=== PATIENT | female | born 1980 | race Two or more races ===

== ENCOUNTER 2016-11-28 02:19 | Emergency (ER) | payer OTHER ==
[~2016-11-28] VITALS: Ht 170.2 cm; Wt 133.1 kg
[~2016-11-28 02:19] MED LIST: ACID CONTROL150 MG PO; AMOXICILLIN500 MG PO; AMOXICILLIN875 MG PO; ATENOLOL25 MG; BENTYL10 MG PO; BENTYL20 MG PO; CALAN SR,COVER120 MG PO; CARAFATE1 GM PO; CIPRO500 MG PO; CLARITIN10 M3 PO; Chronulac,Cephulac,Enulose 20 gm/30 ml PO; DESYREL 150 MG150 MG PO; FLEXERIL10 MG PO; FLOVENT 11120 INHALA; FLOVENT 11120 INHALA IH; GABAPENTIN300 MG PO; GABAPENTIN800 MG PO; IBUPROFEN800 MG PO; KEFLEX500 MG PO; KENALOG,ARISTOC80 G1 TP; LEVAQUIN750 MG PO; LEVOTHROID100 MCG; LEVOTHYROXINE100 MCG PO; LISINOPRIL20 MG PO; LORCET 5-325 M1 EACH PO; LORTAB 10-3251 EACH PO; METFORMIN HCL500 MG PO; MOBIC15 MG PO; MOTRIN800 MG PO; Medrol PO; NAPROSYN500 MG PO; NEURONTIN300 MG PO; NEXIUM20 MG PO; NORCO 5/3251 TABLET PO; NYQUIL D COLD295 ML PO; OMEPRAZOLE20 MG PO; OXYCODONE HCL5 MG PO; PANTOPRAZOLE SO40 MG PO; PEN-VEE K,VEET500 MG PO; PEPCID20 MG PO; PERCOCET 5/31 TABLET PO; PHENERGAN-CODE120 ML PO; PHENERGAN12.5 M1 PO; PREDNISONE20 MG PO; PRILOSEC20 MG; PRILOSEC20 MG PO; PROAIR HFA8.5 GM; PROMETHAZINE HC25 M1 PO; PROTONIX40 MG PO; PROVENTIL HFA6.7 GM IH; ROXICODONE5 MG PO; SEROQUEL100 MG; SEROQUEL100 MG PO; SUCRALFATE1 GM PO; SYNTHROID100 MCG PO; TRAMADOL HCL50 MG; TRAZODONE HCL50 MG PO; ULTRAM50 MG PO; VENTOLIN HFA18 GM IH; VERAPAMIL HCL120 M1 PO; XIFAXAN550 MG PO; ZANTAC150 MG PO; ZESTRIL,PRINIVI20 MG; ZESTRIL20 MG PO; ZOFRAN ODT4 MG PO; ZOFRAN ODT8 MG PO; ZOFRAN4 MG PO; Zithromax PO; [UNRECOGNIZED DRUG - REMARK]
[2016-11-28] MEDS ORDERED: BACTRIM,SEPT1 TABLET PO (02:38)
[2016-11-28] MEDS ORDERED: ULTRAM50 MG PO (02:38)
[2016-11-28] MEDS ORDERED: KEFLEX500 MG PO (02:38)
[2016-11-28 02:46] VITALS: BP 114/70
== END 2016-11-28 02:50 | disposition home or self-care (01) ==
LOC: EME 02:19
DX: L03.112 Cellulitis of left axilla (principal); I10 Essential (primary) hypertension; J45.909 Unspecified asthma, uncomplicated; E03.9 Hypothyroidism, unspecified
CPT/HCPCS: 99281; 99284

== ENCOUNTER 2016-12-16 20:00 | Emergency (ER) | payer OTHER ==
[~2016-12-16] VITALS: Ht 170.2 cm; Wt 134.5 kg
[~2016-12-16 20:00] MED LIST changes: +BACTRIM,SEPT1 TABLET PO
[2016-12-16] MEDS ORDERED: NAPROXEN500 MG PO (22:27)
[2016-12-16 22:36] VITALS: BP 127/83
== END 2016-12-16 22:37 | disposition home or self-care (01) ==
LOC: EME 20:00
DX: M25.561 Pain in right knee (principal); M25.562 Pain in left knee; I10 Essential (primary) hypertension; J45.909 Unspecified asthma, uncomplicated
CPT/HCPCS: 99281; 99284

== ENCOUNTER 2017-04-23 10:08 | Emergency (ER) | payer OTHER ==
[~2017-04-23] VITALS: Ht 170.2 cm; Wt 135.0 kg
[~2017-04-23 10:08] MED LIST changes: +NAPROXEN500 MG PO
[2017-04-23 11:39] LABS: HEMATOCRIT 31.1 % (36.0-46.0); MCH 24.1 PG (29.0-34.0); MCHC 30.9 G/DL (30.0-36.0); MCV 78.1 FL (83-99); PLATELET COUNT 66 K/uL (156-360); RBC DIS.WIDTH-CV 18.8 % (11.8-14.6); RBC DIS.WIDTH-SD 53.9 % (39-53); RED BLOOD COUNT 3.98 M/uL (3.80-5.20); WHITE BLOOD COUNT 3.3 K/uL (4.1-10.2)
[2017-04-23 11:46] LABS: CHLORIDE 106 mEq/L (99-109); POTASSIUM 3.6 mEq/L (3.7-5.4); SODIUM 143 mEq/L (136-147)
[2017-04-23 11:48] LABS: GLUCOSE 119 mg/dL (70-99)
[2017-04-23 11:50] LABS: ANION GAP 10 MEQ/L (2-14); TOTAL BILIRUBIN 0.8 mg/dL (0.0-1.0)
[2017-04-23 11:52] LABS: ALKALINE PHOSPHATASE 278 IU/L (3-129); GFR ESTIMATE (CALCULATED) > 59 mL/min/
[2017-04-23 11:53] LABS: UREA NITROGEN (BUN) 5 mg/dL (9-23)
[2017-04-23 11:55] LABS: LIPASE 27 U/L (1.0-51.0)
[2017-04-23 14:24] VITALS: BP 140/93
== END 2017-04-23 14:27 | disposition home or self-care (01) ==
LOC: EME 10:08
PROVIDERS: Emergency Medicine
DX: D61.818 Other pancytopenia (principal); K06.8 Other specified disorders of gingiva and edentulous alveolar ridge; K74.69 Other cirrhosis of liver; E11.9 Type 2 diabetes mellitus without complications; E05.90 Thyrotoxicosis, unspecified without thyrotoxic crisis or storm; E66.9 Obesity, unspecified; Z68.42 Body mass index [BMI] 45.0-49.9, adult
CPT/HCPCS: 80053; 83605; 83690; 85027; 86850; 86900; 86901; 99281; 99283

== ENCOUNTER 2017-09-26 17:12 | Inpatient (IN) | payer OTHER ==
[2017-09-26] VITALS (7 sets, daily range): BP systolic 99–114; BP diastolic 54–79
[~2017-09-26] VITALS: Ht 170.2 cm; Wt 137.4 kg
[~2017-09-26 17:12] MED LIST changes: +GLUCOPHAGE500 MG PO; +SUCRALFATE1 GM/10 ML PO
[2017-09-26 18:19] LABS: CHLORIDE 106 mEq/L (99-109); HEMATOCRIT 21.5 % (36.0-46.0); MCH 23.4 PG (29.0-34.0); MCHC 30.2 G/DL (30.0-36.0); MCV 77.3 FL (83-99); PLATELET COUNT 84 K/uL (156-360); POTASSIUM 3.4 mEq/L (3.7-5.4); RBC DIS.WIDTH-CV 20.3 % (11.8-14.6); RBC DIS.WIDTH-SD 56.5 % (39-53); SODIUM 143 mEq/L (136-147)
[2017-09-26 18:20] LABS: HEMOGLOBIN 6.5 G/DL (11.9-15.5); RED BLOOD COUNT 2.78 M/uL (3.80-5.20)
[2017-09-26 18:21] LABS: GLUCOSE 87 mg/dL (70-99)
[2017-09-26 18:25] LABS: CREATININE 0.8 mg/dL (0.6-1.3); GFR ESTIMATE (CALCULATED) > 59 mL/min/
[2017-09-26 18:26] LABS: UREA NITROGEN (BUN) 19 mg/dL (9-23)
[2017-09-26 18:36] LABS: ALBUMIN 4.1 g/dL (3.2-4.8)
[2017-09-26 18:39] LABS: TOTAL PROTEIN 7.1 g/dL (6.4-8.3)
[2017-09-26 18:40] LABS: TOTAL BILIRUBIN 0.8 mg/dL (0.0-1.0)
[2017-09-26 18:41] LABS: ALKALINE PHOSPHATASE 231 IU/L (3-129)
[2017-09-26 18:44] LABS: AST (GOT) 40 IU/L (2-34); DIRECT BILIRUBIN 0.3 mg/dL (0.0-0.3)
[2017-09-26 18:45] LABS: ALT (GPT) 18 IU/L (3-49)
[2017-09-26 20:56] LABS: INTER. NORMALIZED RATIO 1.3
[2017-09-26 20:59] LABS: PTT 32.5 SEC (25-37)
[2017-09-26] MEDS ORDERED: QUETIAPINE FUM100 MG PO (22:10)
[2017-09-26] MEDS ORDERED: LEVOTHYROXINE25 MCG PO (22:11)
[2017-09-26] MEDS ORDERED: LEVOTHYROXINE50 MCG PO (22:14)
[2017-09-27] VITALS (31 sets, daily range): BP systolic 0–153; BP diastolic 0–97
[2017-09-27 01:20] LABS: HEMATOCRIT 24.4 % (36.0-46.0); HEMOGLOBIN 7.7 G/DL (11.9-15.5); MCV 80.8 FL (83-99)
[2017-09-27 08:28] LABS: HEMATOCRIT 29.7 % (36.0-46.0); HEMOGLOBIN 9.2 G/DL (11.9-15.5); MCV 80.9 FL (83-99)
[2017-09-27 13:07] LABS: HEMATOCRIT 30.4 % (36.0-46.0); HEMOGLOBIN 9.6 G/DL (11.9-15.5); MCV 81.5 FL (83-99)
[2017-09-27 18:37] LABS: HEMATOCRIT 33.2 % (36.0-46.0); HEMOGLOBIN 10.4 G/DL (11.9-15.5); MCV 83.2 FL (83-99)
[2017-09-28 00:06] VITALS: BP 127/82
[2017-09-28 00:40] LABS: HEMOGLOBIN 9.7 G/DL (11.9-15.5); MCV 84.2 FL (83-99)
[2017-09-28 04:32] VITALS: BP 119/72
[2017-09-28 05:48] LABS: HEMATOCRIT 28.2 % (36.0-46.0); HEMOGLOBIN 8.7 G/DL (11.9-15.5); MCH 25.2 PG (29.0-34.0); MCHC 30.9 G/DL (30.0-36.0); MCV 81.7 FL (83-99); RBC DIS.WIDTH-CV 18.3 % (11.8-14.6); RBC DIS.WIDTH-SD 53.5 % (39-53); WHITE BLOOD COUNT 2.9 K/uL (4.1-10.2)
[2017-09-28 05:50] LABS: RED BLOOD COUNT 3.45 M/uL (3.80-5.20)
[2017-09-28 06:12] LABS: ALBUMIN 3.5 G/DL (3.2-4.8); ALKALINE PHOSPHATASE 184 IU/L (3-129); ALT (GPT) 12 IU/L (3-49); AST (GOT) 34 IU/L (2-34); CHLORIDE 113 MEQ/L (99-109); GFR ESTIMATE (CALCULATED) > 59 mL/min/; GLUCOSE 105 mg/dL (70-99); POTASSIUM 3.8 MEQ/L (3.7-5.4); SODIUM 145 MEQ/L (136-147); TOTAL BILIRUBIN 0.9 MG/DL (0.0-1.0); TOTAL PROTEIN 5.8 G/DL (6.4-8.3); UREA NITROGEN (BUN) 13 mg/dL (9-23)
[2017-09-28 06:22] LABS: PLAT.SUFFICIENCY DECREASED
[2017-09-28 06:27] LABS: PLATELET COUNT 58 K/uL (156-360)
[2017-09-28 08:00] VITALS: BP 119/72
[2017-09-28 12:00] VITALS: BP 126/74
[2017-09-28 16:00] VITALS: BP 126/74
[2017-09-28 20:00] VITALS: BP 124/78
[2017-09-29] VITALS (11 sets, daily range): BP systolic 121–151; BP diastolic 75–99
[2017-09-29 07:35] LABS: HEMATOCRIT 29.9 % (36.0-46.0); HEMOGLOBIN 9.1 G/DL (11.9-15.5); MCH 25.4 PG (29.0-34.0); MCHC 30.4 G/DL (30.0-36.0); MCV 83.5 FL (83-99); PLATELET COUNT 62 K/uL (156-360); RBC DIS.WIDTH-CV 18.9 % (11.8-14.6); RBC DIS.WIDTH-SD 56.1 % (39-53); RED BLOOD COUNT 3.58 M/uL (3.80-5.20); WHITE BLOOD COUNT 2.5 K/uL (4.1-10.2)
[2017-09-29 07:45] LABS: CHLORIDE 114 MEQ/L (99-109); POTASSIUM 4.3 MEQ/L (3.7-5.4); SODIUM 147 MEQ/L (136-147)
[2017-09-29 07:51] LABS: CREATININE 0.9 MG/DL (0.6-1.3); GFR ESTIMATE (CALCULATED) > 59 mL/min/; GLUCOSE 95 mg/dL (70-99); UREA NITROGEN (BUN) 8 mg/dL (9-23)
[2017-09-29 20:36] LABS: HEMATOCRIT 29.4 % (36.0-46.0); HEMOGLOBIN 9.4 G/DL (11.9-15.5); MCV 82.6 FL (83-99)
[2017-09-29 21:01] LABS: TROP-I INTERPRETATION NEGATIVE; TROPONIN-I < 0.01 ng/mL (0.0-0.30)
[2017-09-29 21:23] LABS: ALBUMIN 3.7 G/DL (3.2-4.8); ALKALINE PHOSPHATASE 196 IU/L (3-129); ALT (GPT) 19 IU/L (3-49); AST (GOT) 45 IU/L (2-34); CHLORIDE 109 MEQ/L (99-109); GFR ESTIMATE (CALCULATED) > 59 mL/min/; GLUCOSE 90 mg/dL (70-99); POTASSIUM 3.9 MEQ/L (3.7-5.4); SODIUM 144 MEQ/L (136-147); TOTAL PROTEIN 6.5 G/DL (6.4-8.3); UREA NITROGEN (BUN) 8 mg/dL (9-23)
[2017-09-29 21:25] LABS: TOTAL BILIRUBIN 0.7 MG/DL (0.0-1.0)
[2017-09-30 00:01] VITALS: BP 124/73
[2017-09-30 02:55] LABS: TROP-I INTERPRETATION NEGATIVE; TROPONIN-I 0.03 ng/mL (0.0-0.30)
[2017-09-30 04:00] VITALS: BP 121/68
[2017-09-30 07:30] VITALS: BP 124/78
[2017-09-30 09:09] LABS: HEMATOCRIT 29.5 % (36.0-46.0); HEMOGLOBIN 9.2 G/DL (11.9-15.5); MCHC 31.2 G/DL (30.0-36.0); MCV 83.3 FL (83-99); RBC DIS.WIDTH-CV 19.1 % (11.8-14.6); RBC DIS.WIDTH-SD 56.5 % (39-53); RED BLOOD COUNT 3.54 M/uL (3.80-5.20); WHITE BLOOD COUNT 2.9 K/uL (4.1-10.2)
[2017-09-30 09:30] LABS: CHLORIDE 107 MEQ/L (99-109); GFR ESTIMATE (CALCULATED) > 59 mL/min/; POTASSIUM 4.1 MEQ/L (3.7-5.4); SODIUM 142 MEQ/L (136-147); UREA NITROGEN (BUN) 8 mg/dL (9-23)
[2017-09-30 09:31] LABS: GLUCOSE 116 mg/dL (70-99)
[2017-09-30 09:35] LABS: TROP-I INTERPRETATION NEGATIVE; TROPONIN-I < 0.01 ng/mL (0.0-0.30)
[2017-09-30 09:36] LABS: PLAT.SUFFICIENCY VERY DECREASED; PLATELET COUNT 59 K/uL (156-360)
[2017-09-30 11:20] VITALS: BP 148/83
[2017-09-30] MEDS ORDERED: PANTOPRAZOLE SO40 MG PO (14:58)
== END 2017-09-30 17:08 | disposition home or self-care (01) | DRG 377 ==
LOC: EME 17:12 → EDOF 23:38 → 4WEST 23:38 → ENRESERV 23:39 → ENRESERVTM 09-27 01:01 → ENRESERVDT 09-27 01:01 → ENRESERV 09-27 01:01 → 4WEST 09-27 02:27 → ENRESERV 09-27 17:13 → CANRESERV 09-28 13:00 → ENRESERV 09-29 06:59 → 4EAST 09-29 08:36 → ENPENDDIS 09-30 → 4EAST 09-30 17:08
PROVIDERS: Hospitalist; Internal Medicine; Surgery
PROC: 30233N1 Transfusion of Nonautologous Red Blood Cells into Peripheral Vein, Percutaneous Approach (ICD-10-PCS; principal; 2017-09-26)
PROC: 0DJ08ZZ Inspection of Upper Intestinal Tract, Via Natural or Artificial Opening Endoscopic (ICD-10-PCS; 2017-09-27)
DX: K92.2 Gastrointestinal hemorrhage, unspecified (principal); T39.395A Adverse effect of other nonsteroidal anti-inflammatory drugs [NSAID], initial encounter; R57.1 Hypovolemic shock; K22.10 Ulcer of esophagus without bleeding; K29.60 Other gastritis without bleeding; K74.69 Other cirrhosis of liver; K76.6 Portal hypertension; D61.818 Other pancytopenia; D62 Acute posthemorrhagic anemia; E87.6 Hypokalemia; G43.909 Migraine, unspecified, not intractable, without status migrainosus; K21.9 Gastro-esophageal reflux disease without esophagitis; K44.9 Diaphragmatic hernia without obstruction or gangrene; E11.9 Type 2 diabetes mellitus without complications; R07.81 Pleurodynia; I10 Essential (primary) hypertension; E03.9 Hypothyroidism, unspecified; R16.1 Splenomegaly, not elsewhere classified; G40.909 Epilepsy, unspecified, not intractable, without status epilepticus; J45.909 Unspecified asthma, uncomplicated; R19.7 Diarrhea, unspecified; R94.31 Abnormal electrocardiogram [ECG] [EKG]; F41.9 Anxiety disorder, unspecified; F31.9 Bipolar disorder, unspecified; E66.9 Obesity, unspecified; Z68.42 Body mass index [BMI] 45.0-49.9, adult; Z82.49 Family history of ischemic heart disease and other diseases of the circulatory system; Z79.1 Long term (current) use of non-steroidal anti-inflammatories (NSAID); Z87.11 Personal history of peptic ulcer disease; Z87.19 Personal history of other diseases of the digestive system; Z96.649 Presence of unspecified artificial hip joint
CPT/HCPCS: 74177; 80048; 80053; 80076; 84484; 85014; 85018; 85025; 85027; 85379; 85610; 85730; 86850; 86900; 86901; 86920; 87641; 93005; 94640; 94640 76; 94799; 99202; 99281; 99285; C9113; J0696; J2354; J2405; J2765; J3010; J3480; J7030; J7040; J7050; P9016

== ENCOUNTER 2017-10-06 11:58 | Emergency (ER) | payer OTHER ==
[~2017-10-06] VITALS: Ht 170.2 cm; Wt 134.1 kg
[~2017-10-06 11:58] MED LIST changes: +LEVOTHYROXINE25 MCG PO; +LEVOTHYROXINE50 MCG PO; +QUETIAPINE FUM100 MG PO
[2017-10-06 13:19] LABS: HEMATOCRIT 31.2 % (36.0-46.0); HEMOGLOBIN 9.9 G/DL (11.9-15.5); MCH 25.9 PG (29.0-34.0); MCHC 31.7 G/DL (30.0-36.0); MCV 81.7 FL (83-99); RBC DIS.WIDTH-CV 18.9 % (11.8-14.6); RED BLOOD COUNT 3.82 M/uL (3.80-5.20); WHITE BLOOD COUNT 2.5 K/uL (4.1-10.2)
[2017-10-06 13:22] LABS: ALBUMIN 4.2 g/dL (3.2-4.8); CHLORIDE 107 mEq/L (99-109)
[2017-10-06 13:23] LABS: INTER. NORMALIZED RATIO 1.2; POTASSIUM 4.1 mEq/L (3.7-5.4); SODIUM 144 mEq/L (136-147)
[2017-10-06 13:25] LABS: GLUCOSE 91 mg/dL (70-99); TOTAL PROTEIN 7.4 g/dL (6.4-8.3)
[2017-10-06 13:28] LABS: ALKALINE PHOSPHATASE 281 IU/L (3-129); CREATININE 0.9 mg/dL (0.6-1.3); GFR ESTIMATE (CALCULATED) > 59 mL/min/
[2017-10-06 13:30] LABS: AST (GOT) 51 IU/L (2-34); UREA NITROGEN (BUN) 5 mg/dL (9-23)
[2017-10-06 13:31] LABS: ALT (GPT) 25 IU/L (3-49)
[2017-10-06 13:38] LABS: QUANTITATIVE HCG < 4.0 MIU/ML
[2017-10-06 14:01] LABS: IMM.PLATELET FRACTION 22.4 (1-7); PLAT.SUFFICIENCY DECREASED; PLATELET COUNT 48 K/uL (156-360)
[2017-10-06] MEDS ORDERED: LEVSIN-SL0.125 MG SL (14:34)
[2017-10-06] MEDS ORDERED: ZOFRAN ODT4 MG PO (14:34)
[2017-10-06] MEDS ORDERED: PROTONIX40 MG PO (14:34)
[2017-10-06 14:57] VITALS: BP 138/89
== END 2017-10-06 14:58 | disposition home or self-care (01) ==
LOC: EME 11:58
DX: R10.9 Unspecified abdominal pain (principal); D64.9 Anemia, unspecified; D69.6 Thrombocytopenia, unspecified; K74.60 Unspecified cirrhosis of liver; E11.9 Type 2 diabetes mellitus without complications; E03.9 Hypothyroidism, unspecified; K21.9 Gastro-esophageal reflux disease without esophagitis; I10 Essential (primary) hypertension; J45.909 Unspecified asthma, uncomplicated; Z90.49 Acquired absence of other specified parts of digestive tract; F32.9 Major depressive disorder, single episode, unspecified; F41.9 Anxiety disorder, unspecified
CPT/HCPCS: 80048; 80053; 84702; 85027; 85610; 85730; 86850; 86900; 86901; 99281; 99284

== ENCOUNTER 2017-11-01 15:32 | Emergency (ER) | payer OTHER ==
[~2017-11-01] VITALS: Ht 170.2 cm; Wt 131.2 kg
[~2017-11-01 15:32] MED LIST changes: +LEVSIN-SL0.125 MG SL
[2017-11-01 15:57] VITALS: BP 150/105
[2017-11-01 16:26] LABS: ALBUMIN 4.2 g/dL (3.2-4.8); INTER. NORMALIZED RATIO 1.2
[2017-11-01 16:27] LABS: CHLORIDE 106 mEq/L (99-109); SODIUM 141 mEq/L (136-147)
[2017-11-01 16:28] LABS: HEMATOCRIT 33.3 % (36.0-46.0); HEMOGLOBIN 10.8 G/DL (11.9-15.5); IMM.PLATELET FRACTION 20.5 (1-7); MCH 26.2 PG (29.0-34.0); MCHC 32.4 G/DL (30.0-36.0); MCV 80.8 FL (83-99); PLATELET COUNT 51 K/uL (156-360); PTT 38.2 SEC (25-37); RBC DIS.WIDTH-CV 16.9 % (11.8-14.6); RBC DIS.WIDTH-SD 49.5 % (39-53); RED BLOOD COUNT 4.12 M/uL (3.80-5.20); WHITE BLOOD COUNT 2.1 K/uL (4.1-10.2)
[2017-11-01 16:29] LABS: GLUCOSE 83 mg/dL (70-99); TOTAL PROTEIN 7.6 g/dL (6.4-8.3)
[2017-11-01 16:32] LABS: ALKALINE PHOSPHATASE 316 IU/L (3-129); CREATININE 0.9 mg/dL (0.6-1.3); GFR ESTIMATE (CALCULATED) > 59 mL/min/
[2017-11-01 16:34] LABS: AST (GOT) 44 IU/L (2-34); UREA NITROGEN (BUN) 9 mg/dL (9-23)
[2017-11-01 16:35] LABS: ALT (GPT) 25 IU/L (3-49)
[2017-11-01 16:36] LABS: LIPASE 19 U/L (1.0-51.0)
[2017-11-01 16:43] LABS: QUANTITATIVE HCG < 4.0 MIU/ML
[2017-11-01] MEDS ORDERED: ZANTAC150 MG PO (17:57)
[2017-11-01] MEDS ORDERED: ULTRAM50 MG PO (17:57)
== END 2017-11-01 18:45 | disposition home or self-care (01) ==
LOC: EME 15:32
PROVIDERS: Physician Assistant
DX: R10.13 Epigastric pain (principal); D64.9 Anemia, unspecified; J45.909 Unspecified asthma, uncomplicated; E11.9 Type 2 diabetes mellitus without complications; I10 Essential (primary) hypertension; K21.9 Gastro-esophageal reflux disease without esophagitis; E03.9 Hypothyroidism, unspecified; F32.9 Major depressive disorder, single episode, unspecified; F41.9 Anxiety disorder, unspecified; K74.60 Unspecified cirrhosis of liver
CPT/HCPCS: 80053; 83690; 84702; 85027; 85610; 85730; 99281; 99284

== ENCOUNTER 2017-12-15 19:33 | Emergency (ER) | payer OTHER ==
[~2017-12-15] VITALS: Ht 170.2 cm; Wt 130.5 kg
[2017-12-15 20:24] LABS: HEMATOCRIT 33.2 % (36.0-46.0); HEMOGLOBIN 10.5 G/DL (11.9-15.5); MCH 25.2 PG (29.0-34.0); MCHC 31.6 G/DL (30.0-36.0); MCV 79.6 FL (83-99); PLATELET COUNT 60 K/uL (156-360); RBC DIS.WIDTH-CV 15.5 % (11.8-14.6); RBC DIS.WIDTH-SD 44.7 % (39-53); RED BLOOD COUNT 4.17 M/uL (3.80-5.20); WHITE BLOOD COUNT 2.8 K/uL (4.1-10.2)
[2017-12-15 20:31] LABS: CHLORIDE 109 mEq/L (99-109); SODIUM 143 mEq/L (136-147)
[2017-12-15 20:33] LABS: GLUCOSE 100 mg/dL (70-99)
[2017-12-15 20:36] LABS: CREATININE 0.7 mg/dL (0.6-1.3); GFR ESTIMATE (CALCULATED) > 59 mL/min/
[2017-12-15 20:37] LABS: UREA NITROGEN (BUN) 12 mg/dL (9-23)
[2017-12-15 20:39] LABS: LIPASE 24 U/L (1.0-51.0)
[2017-12-15 20:50] LABS: QUANTITATIVE HCG < 4.0 MIU/ML
[2017-12-15 21:08] LABS: APPEARANCE CLEAR ((CLEAR)); BILIRUBIN NEGATIVE; BLOOD NEGATIVE; COLOR STRAW ((YELLOW)); GLUCOSE (STRIP) NEGATIVE; KETONES NEGATIVE; LEUKOCYTES NEGATIVE; NITRITE NEGATIVE; PROTEIN (STRIP) NEGATIVE; SPECIFIC GRAVITY 1.008 (1.000-1.030); UCUL ADDED? NO; UROBILINOGEN 0.2 MG/DL (0.2-1.0)
[2017-12-15] MEDS ORDERED: BENTYL10 MG PO (21:46)
[2017-12-15 22:07] VITALS: BP 176/103
[2017-12-15 22:15] LABS: ALBUMIN 4.3 g/dL (3.2-4.8)
[2017-12-15 22:18] LABS: TOTAL PROTEIN 7.6 g/dL (6.4-8.3)
[2017-12-15 22:19] LABS: TOTAL BILIRUBIN 0.9 mg/dL (0.0-1.0)
[2017-12-15 22:20] LABS: ALKALINE PHOSPHATASE 270 IU/L (3-129)
[2017-12-15 22:23] LABS: AST (GOT) 41 IU/L (2-34); DIRECT BILIRUBIN 0.4 mg/dL (0.0-0.3)
[2017-12-15 22:24] LABS: ALT (GPT) 20 IU/L (3-49)
== END 2017-12-15 22:29 | disposition home or self-care (01) ==
LOC: EME → EDBD 19:33 → EME 19:33
DX: R10.13 Epigastric pain (principal); K21.9 Gastro-esophageal reflux disease without esophagitis; I10 Essential (primary) hypertension; E11.9 Type 2 diabetes mellitus without complications; E03.9 Hypothyroidism, unspecified; J45.909 Unspecified asthma, uncomplicated; K74.60 Unspecified cirrhosis of liver; G43.909 Migraine, unspecified, not intractable, without status migrainosus; R56.9 Unspecified convulsions; K44.9 Diaphragmatic hernia without obstruction or gangrene; I49.9 Cardiac arrhythmia, unspecified; F41.9 Anxiety disorder, unspecified; F32.9 Major depressive disorder, single episode, unspecified; F31.9 Bipolar disorder, unspecified; Z90.49 Acquired absence of other specified parts of digestive tract; Z87.19 Personal history of other diseases of the digestive system; Z85.9 Personal history of malignant neoplasm, unspecified; Z91.041 Radiographic dye allergy status; Z91.010 Allergy to peanuts; Z91.013 Allergy to seafood
CPT/HCPCS: 80048; 80076; 80156; 80184; 80185; 81003; 83690; 84702; 85027; 99281; 99284; J1885